=== PATIENT | male | born 1960 | race Caucasian/White ===

== ENCOUNTER 2017-06-27 19:19 | Emergency (ER) | payer OTHER ==
[~2017-06-27] VITALS: Ht 182.9 cm; Wt 135.8 kg
[~2017-06-27 19:19] MED LIST: ATV/1 PO; BSP15 PO; CITA40TA4 PO; FLM4 PO; HYDR-5688 PO; IBUP-1277 PO; LEVO125T8 PO; LYR25 PO; PRLSR20 PO; PROP20TA67 PO; RANI75TA7 PO; TRAZ50TA35 PO
[2017-06-27 19:22] VITALS: TEMP 36.8; Ht 182.9 cm; Wt 135.8 kg
[2017-06-27] MEDS ORDERED: FLM4 PO (19:49)
[2017-06-27] MEDS ORDERED: ATV1 PO (19:49)
[2017-06-27] MEDS ORDERED: FLNIN/ NAE (19:49)
[2017-06-27] MEDS ORDERED: DSY/150 PO (19:49)
[2017-06-27] MEDS ORDERED: PRS5 PO (19:49)
[2017-06-27] MEDS ORDERED: OMEP20CA9 PO (19:49)
[2017-06-27] MEDS ORDERED: CYCL10TA7 PO (19:49)
[2017-06-27] MEDS ORDERED: LEVO125T4 PO (19:49)
[2017-06-27] MEDS ORDERED: BUSP30TA2 PO (19:49)
[2017-06-27] MEDS ORDERED: VST25HP PO (19:49)
[2017-06-27] MEDS ORDERED: MELO15TA4 PO (19:49)
--- NOTE | 2017-06-27 20:26 | DIAGNOSTIC IMAGING REPORT ---
RIGHT LOWER EXTREMITY VENOUS DOPPLER HISTORY: right leg edema, recent long travel COMPARISON STUDY: None. FINDINGS: There is normal compressibility, flow, and augmentation within the right lower extremity deep venous system. IMPRESSION: No DVT within the right lower extremity Electronically signed by: Marlon Cho M.D. 06/27/2017 8:25 PM Dictated Date/Time: 06/27/2017 8:25 PM
--- NOTE | 2017-06-27 22:04 | EMERGENCY ROOM VISIT NOTE ---
History First contact with patient: 19:31 Chief Complaint: LEG PAIN,LEG INJURY Stated Complaint: SWOLLEN LEG History of Present Illness The patient is a 57 year old male who presents to the Emergency Room via private vehicle accompanied by with complaints of "swollen leg". The patient states that he has noticed that his legs have been puffy over the past few weeks, but recently flew back from [place] this morning and noted that his right leg is now larger than the left. He is concerned he may have a DVT. He denies any chest pain or shortness of breath. He also notes intermittent dizziness over the past month. He denies any leg pain. Review of Systems A complete 6-point Review of Systems was discussed with the patient, with pertinent positives and negatives listed in the History of Present Illness. All remaining Review of Systems questions can be considered negative unless otherwise specified. Past Medical/Surgical History Medical Problems: (1) Benign hypertension (2) Bronchitis (3) Diabetes mellitus (4) Heart disease Family History Patient reports no known family medical history. Social History Smoking Status: Former Smoker Alcohol Use: none Drug Use: none Marital Status: Housing Status: lives with family Occupation Status: employed Current/Historical Medications Scheduled Buspirone Hcl (Buspirone Hcl), 30 MG PO BID Citalopram (Citalopram Hydrobromide), 40 MG PO HS Finasteride (Finasteride), 5 MG PO DAILY Levothyroxine Sodium (Levothyroxine Sodium), 125 MCG PO QAM Omeprazole (Prilosec), 20 MG PO BID Pregabalin (Lyrica), 25 MG PO TID Propranolol (Inderal), 40 MG PO DAILY Tamsulosin HCl (Tamsulosin HCl), 0.4 MG PO HS Trazodone HCl (Trazodone HCl), 75 MG PO HS Scheduled PRN Cyclobenzaprine HCl (Cyclobenzaprine HCl), 10 MG PO TID PRN for Muscle Spasm Fluticasone Propionate (Fluticasone Propionate), 2 SPRAYS BRISA DAILY PRN for Allergy Symptoms Hydroxyzine HCl (Hydroxyzine Pamoate), 25 MG PO BID PRN for Anxiety Ibuprofen (Advil), 400 MG PO Q6H PRN for Pain Lorazepam (Lorazepam), 1 MG PO DAILY PRN for Anxiety Meloxicam (Meloxicam), 15 MG PO DAILY PRN for Pain Physical Exam Vital Signs Date Time Temp Pulse Resp B/P (MAP) Pulse Ox O2 Delivery O2 Flow Rate FiO2 06/27/17 21:32 75 150/84 95 Room Air 76 154/87 81 155/93 06/27/17 21:27 76 14 147/92 96 Room Air 06/27/17 20:30 78 14 145/84 96 Room Air 06/27/17 19:22 36.8 85 18 157/98 95 Room Air Physical Exam VITAL SIGNS - Vital signs and nursing notes were reviewed. Stable. Hypertensive. GENERAL - 57-year-old male appearing his stated age who is in no acute distress. Communicates well with provider and answers questions appropriately. SKIN - Without rashes. Skin overlying the right leg is unremarkable. It is slightly tense. HEAD - NC/AT. EYES - Sclera anicteric. EARS - No deformities of external structures noted on gross examination bilaterally. NOSE - Midline and without cyanosis. No epistaxis or purulent drainage noted. MOUTH/OROPHARYNX - Without perioral cyanosis. EXTREMITIES - No clubbing or peripheral cyanosis. There is edema noted to the right lower extremity and left. Right greater than left. No calf tenderness. PSYCH - Pt is very pleasant and interacts well with examiner. Medical Decision & Procedures ER Provider Diagnostic Interpretation: RIGHT LOWER EXTREMITY VENOUS DOPPLER HISTORY: right leg edema, recent long travel COMPARISON STUDY: None. FINDINGS: There is normal compressibility, flow, and augmentation within the right lower extremity deep venous system. IMPRESSION: No DVT within the right lower extremity Electronically signed by: Marlon Cho M.D. 06/27/2017 8:25 PM Dictated Date/Time: 06/27/2017 8:25 PM Medical Decision Patient was seen and evaluated as above. After obtaining a thorough history and physical examination decision was made to obtain an ultrasound of the patient's right lower extremity. This reveals no DVT. Orthostatic vitals were negative. He is hypertensive, and is to follow with his family doctor. At this time he appears stable for outpatient management. He was also seen and evaluated by the attending physician. He has an echocardiogram scheduled for 8 days from now. He is to return with worsening symptoms. He was educated upon management, educated upon worrisome symptoms in which to return, had questions about a cage loader, and was discharged home in good condition. In evaluation treatment this patient following differential diagnoses were entertained: DVT, lower extremity edema, CHF, among others. Medication Reconcilliation Current Medication List: was personally reviewed by me Blood Pressure Screening Patient's blood pressure: Elevated blood pressure Blood pressure disposition: Referred to PCP Impression Primary Impression: Leg edema, right Departure Information Dispostion Home / Self-Care Condition GOOD Referrals Alvino Dunham D.O. (PCP) Patient Instructions My [facility] Additional Instructions You have been treated in the Emergency Department for right leg Pain. If this is a recent injury (<24 hrs), ice can be applied to the area of pain for the first 3 days to help decrease pain and inflammation. Ice massages can be performed by freezing water in a paper cup, peeling back the cup to expose the ice and then massaging over the affected area. Please call family doctor tomorrow to schedule follow up. Please follow up for Blood pressure elevation. Watch salt intake No strenuous exercise until echo Return to the Emergency Department if your current symptoms worsen despite treatment course outlined above. Thank you for your time
[2017-06-27 22:10] VITALS: BP 157/100; PULSE 73; O2SAT 96
--- NOTE | 2017-06-27 22:14 | EMERGENCY ROOM VISIT NOTE ---
ED Visit Note First contact with patient: 19:31 The patient was seen and examined with Glenn Magaña PA-C. I agree with the history, physical and findings. Please see the note for disposition and details.
== END 2017-06-27 22:10 | disposition home or self-care (01) ==
LOC: C.EDB 19:20 → C.EDD 22:10
DX: R60.0 Localized edema (principal); I10 Essential (primary) hypertension; E11.9 Type 2 diabetes mellitus without complications; Z87.891 Personal history of nicotine dependence